=== PATIENT | female | born 1975 | race Two or more races ===

== ENCOUNTER 2019-09-14 18:04 | Emergency (ER) | payer OTHER ==
[~2019-09-14] VITALS: Ht 157.5 cm; Wt 88.0 kg
[2019-09-14] MEDS ORDERED: CLARITIN10 MG PO (18:33)
[2019-09-14] MEDS ORDERED: ENALAPRIL MALEA10 MG PO (18:33)
[2019-09-14] MEDS ORDERED: METFORMIN HCL500 M4 PO (18:33)
[2019-09-14] MEDS ORDERED: OMEPRAZOLE40 MG PO (18:34)
[2019-09-14] MEDS ORDERED: QUETIAPINE FUMA25 MG PO (18:34)
[2019-09-14] MEDS ORDERED: SERTRALINE HCL25 MG PO (18:34)
[2019-09-14] MEDS ORDERED: VITAMIN B-1000.4 MG PO (18:35)
== END 2019-09-14 22:52 | disposition home or self-care (01) ==
LOC: ER 18:04
DX: R10.13 Epigastric pain (principal); K25.9 Gastric ulcer, unspecified as acute or chronic, without hemorrhage or perforation

== ENCOUNTER 2020-01-13 17:15 | Emergency (ER) | payer OTHER ==
[~2020-01-13] VITALS: Ht 154.9 cm; Wt 79.8 kg
[~2020-01-13 17:15] MED LIST: CLARITIN10 MG PO; ENALAPRIL MALEA10 MG PO; METFORMIN HCL500 M4 PO; OMEPRAZOLE40 MG PO; QUETIAPINE FUMA25 MG PO; SERTRALINE HCL25 MG PO; VITAMIN B-1000.4 MG PO
== END 2020-01-14 00:44 | disposition home or self-care (01) ==
LOC: ER 17:15
DX: Z03.818 Encounter for observation for suspected exposure to other biological agents ruled out (principal); R19.7 Diarrhea, unspecified; R05 Cough; R53.81 Other malaise

== ENCOUNTER 2020-11-09 14:38 | Emergency (ER) | payer OTHER ==
[~2020-11-09] VITALS: Ht 154.9 cm; Wt 77.1 kg
[2020-11-09] MEDS ORDERED: ULTRAM50 MG PO (19:17)
[2020-11-09] MEDS ORDERED: PYRIDIUM DS200 MG PO (19:17)
[2020-11-09] MEDS ORDERED: DICLOFENAC POTA50 MG PO (19:17)
[2020-11-09] MEDS ORDERED: PEPCID AC20 MG PO (19:17)
[2020-11-09] MEDS ORDERED: SKELAXIN800 MG PO (19:17)
== END 2020-11-09 20:09 ==
LOC: ER 14:38
DX: M62.830 Muscle spasm of back (principal); Z03.818 Encounter for observation for suspected exposure to other biological agents ruled out